=== PATIENT | female | born 1980 | race Caucasian/White ===

== ENCOUNTER 2023-01-22 23:28 | Emergency (ER) | payer MEDICAID ==
[~2023-01-22] VITALS: Ht 157.5 cm; Wt 65.0 kg
[2023-01-22 23:30] VITALS: BP 128/65; PULSE 97; RESP 20; TEMP 99.1; O2SAT 98
[2023-01-22] MEDS ORDERED: KETOROLAC 60MG/2ML VIAL IM STA (23:48)
[2023-01-23] MEDS ORDERED: SODIUM CHLORIDE 0.9% 1,000 ML IV ONE
[2023-01-23 00:08] LABS: BASOPHILS % 0.5 % (0.0-2.0); EOSINOPHILS % 2.1 % (0.0-5.0); HEMATOCRIT. 35.7 % (36.0-48.0); LYMPHOCYTES % 20.6 % (20.0-50.0); MEAN CORPUSCULAR HEMOGLOBIN 29.9 pg (28.0-32.0); MEAN CORPUSCULAR HGB CONC 33.5 g/dL (31.0-37.0); MEAN CORPUSCULAR VOLUME 89.4 fL (81.0-99.0); MEAN PLATELET VOLUME 8.6 fl (7.4-10.4); NEUTROPHILS % 69.8 % (40.0-76.0); PLATELET 231 x1000/uL (130-400); RED CELL DISTRIBUTION WIDTH 13.8 % (11.6-14.6); WHITE BLOOD COUNT 9.6 x1000/uL (4.5-11.0)
[2023-01-23 00:16] LABS: CHLORIDE 107 mEq/L (98-107); INDEX HEMOLYSI 1 (1-3); INDEX ICTERIC 1 (1-4); INDEX LIPEMIC 1 (1-3); POTASSIUM 3.5 mEq/L (3.5-5.1); SODIUM 138 mEq/L (136-145)
[2023-01-23 00:27] LABS: ALANINE AMINOTRANSFERASE 36 IU/L (13-61); ALBUMIN 3.5 g/dL (3.4-5.0); ASPARTATE AMINOTRANSFERASE 14 IU/L (15-37); BILIRUBIN TOTAL 0.4 mg/dL (0.1-1.0); CALCIUM 8.3 mg/dL (8.5-10.1); CARBON DIOXIDE 23 mEq/L (21-32); CREATININE 0.4 mg/dL (0.6-1.3); GLUCOSE 119 mg/dL (70-105); HCG SCREEN NEGATIVE; PROTEIN TOTAL 7.2 g/dL (6.0-8.3); TROPONIN I HIGH SENSITIVITY 4 ng/L (<54); UREA NITROGEN BLOOD 7 mg/dL (7-21)
[2023-01-23 02:35] LABS: TROPONIN I HIGH SENSITIVITY 8 ng/L (<54)
== END 2023-01-23 05:40 | disposition home or self-care (01) ==
LOC: ER 23:28
DX: R07.9 Chest pain, unspecified (principal); E11.9 Type 2 diabetes mellitus without complications
CPT/HCPCS: 99285; 71045; 80053; 84703; 85025; 84484 ×2; 36415 ×2; 93005; 96372; 96360; J1885; J7030